=== PATIENT | female | born 1940 | race African-American/Black ===

== ENCOUNTER 2017-11-08 21:57 | Emergency (ER) | payer MEDICARE, BC ==
[~2017-11-08] VITALS: Ht 160 cm; Wt 68.0 kg
[~2017-11-08 21:57] MED LIST: CENTRUM SILVER1 EAC4 PO; COLACE100 MG PO; LOSARTAN-HCTZ1 EAC2 PO; NORCO 5-325 TA1 EACH PO; NORVASC5 MG PO
[2017-11-08] MEDS ORDERED: COZAAR 50 MG TA50 M2 (22:15)
[2017-11-08] MEDS ORDERED: AMOXIL 875 MG875 M2 (22:16)
[2017-11-08 22:53] VITALS: BP 162/81
== END 2017-11-08 22:53 | disposition home or self-care (01) ==
LOC: M.ERS 21:57
DX: I10 Essential (primary) hypertension (principal)